=== PATIENT | female | born 1995 | race Caucasian/White ===

== ENCOUNTER 2022-01-15 23:45 | Emergency (ER) | payer OTHER ==
[~2022-01-15] VITALS: Ht 157.5 cm; Wt 70.9 kg
[2022-01-16 02:32] LABS: BACTERIA, URINE SMALL AMOUNT; HYALINE CAST, URINE NONE SEEN /lpf (0-1); RBC, URINE 30-40 /hpf (0-3); SQUAMOUS EPITHELIAL CELL URINE SMALL AMOUNT /hpf (SMALL AMT)
[2022-01-16 02:33] LABS: AMORPHOUS SEDIMENT, URINE SMALL AMOUNT (NEGATIVE)
[2022-01-16 06:44] LABS: HEMATOCRIT 36.1 % (36.0-47.0); HEMOGLOBIN 12.1 g/dl (12.0-15.5); MEAN CORPUSCULAR HEMOGLOBIN 30.9 pg (27.0-33.0); MEAN CORPUSCULAR HGB CONC 33.5 g/dl (32.0-36.5); MEAN CORPUSCULAR VOLUME 92.1 fl (80.0-96.0); PLATELET COUNT, AUTOMATED 214 10^3/uL (150-450); RED BLOOD COUNT 3.92 10^6/uL (4.00-5.40); WHITE BLOOD COUNT 7.4 10^3/uL (4.0-10.0)
[2022-01-16 07:09] LABS: HCG, SERUM QUALITATIVE NEGATIVE (NEGATIVE)
[2022-01-16 07:15] LABS: BLOOD UREA NITROGEN 12 MG/DL (7-18); CALCIUM LEVEL 9.5 MG/DL (8.5-10.1); CARBON DIOXIDE LEVEL 29 MEQ/L (21-32); CHLORIDE LEVEL 106 MEQ/L (98-107); CREATININE FOR GFR 0.74 MG/DL (0.55-1.30); GLOMERULAR FILTRATION RATE > 60.0 (>60); GLUCOSE, FASTING 92 MG/DL (70-100); POTASSIUM SERUM 3.9 MEQ/L (3.5-5.1); SODIUM LEVEL 139 MEQ/L (136-145)
[2022-01-16 09:16] VITALS: BP 130/82
== END 2022-01-16 09:28 | disposition home or self-care (01) ==
LOC: M ED 23:45
DX: N93.9 Abnormal uterine and vaginal bleeding, unspecified (principal); E28.2 Polycystic ovarian syndrome; K58.9 Irritable bowel syndrome, unspecified; Z87.442 Personal history of urinary calculi; Z88.0 Allergy status to penicillin; Z88.1 Allergy status to other antibiotic agents; Z88.6 Allergy status to analgesic agent; Z91.040 Latex allergy status; Z88.5 Allergy status to narcotic agent

== ENCOUNTER → 2022-09-28 | Outpatient (REF) | LOC: M LAB REF 17:21 | PROVIDERS: ATTEND Obstetrics & Gynecology Obstetrics | DX: Z00.00 Encounter for general adult medical examination without abnormal findings (principal) ==

== ENCOUNTER → 2022-10-21 | Outpatient (CLI) | payer OTHER ==
[2022-10-21 17:59] LABS: HEMATOCRIT 34.9 % (36.0-47.0); HEMOGLOBIN 11.7 g/dl (12.0-15.5); MEAN CORPUSCULAR HEMOGLOBIN 32.1 pg (27.0-33.0); MEAN CORPUSCULAR HGB CONC 33.5 g/dl (32.0-36.5); MEAN CORPUSCULAR VOLUME 95.9 fl (80.0-96.0); PLATELET COUNT, AUTOMATED 220 10^3/uL (150-450); RED BLOOD COUNT 3.64 10^6/uL (4.00-5.40); WHITE BLOOD COUNT 11.3 10^3/uL (4.0-10.0)
[2022-10-21 19:49] LABS: GC DNA AMPLIFICATION NEGATIVE (NEGATIVE)
== END ==
LOC: M PLALAB 15:38
PROVIDERS: ATTEND Obstetrics & Gynecology
DX: Z34.92 Encounter for supervision of normal pregnancy, unspecified, second trimester (principal)

== ENCOUNTER → 2022-11-07 | Outpatient (CLI) | payer OTHER ==
[2022-11-07 17:16] LABS: HEMOGLOBIN 11.9 g/dl (12.0-15.5); MEAN CORPUSCULAR HEMOGLOBIN 32.2 pg (27.0-33.0); MEAN CORPUSCULAR VOLUME 94.9 fl (80.0-96.0); PLATELET COUNT, AUTOMATED 253 10^3/uL (150-450); RED BLOOD COUNT 3.69 10^6/uL (4.00-5.40); WHITE BLOOD COUNT 13.3 10^3/uL (4.0-10.0)
[2022-11-07 17:53] LABS: URIC ACID 3.4 MG/DL (3.1-7.8)
[2022-11-07 17:56] LABS: LDH LACTATE DEHYDROGENASE 190 U/L (120-246)
[2022-11-07 17:57] LABS: ALT/SGPT 14 U/L (7.0-40); AST/SGOT 11 U/L (<34); BILIRUBIN,TOTAL 0.3 MG/DL (0.3-1.2); CREATININE FOR GFR 0.58 MG/DL (0.55-1.30); GLOMERULAR FILTRATION RATE > 60.0 (>60); TOTAL PROTEIN,RANDOM URINE 22.5 MG/DL (0.0-14.0)
[2022-11-07 18:01] LABS: CREATININE,RANDOM URINE 150.5 MG/DL
== END ==
LOC: M PLALAB 15:42
PROVIDERS: ATTEND Advanced Practice Midwife
DX: O13.9 Gestational [pregnancy-induced] hypertension without significant proteinuria, unspecified trimester (principal)

== ENCOUNTER 2022-11-19 00:41 | Outpatient (CLI) | payer OTHER ==
[~2022-11-19] VITALS: Ht 157.5 cm; Wt 77.2 kg
[2022-11-19 01:12] VITALS: BP 142/87
== END 2022-11-19 01:34 | disposition home or self-care (01) ==
LOC: M LDO 00:41
PROVIDERS: ATTEND Advanced Practice Midwife
DX: O26.893 Other specified pregnancy related conditions, third trimester (principal); N89.8 Other specified noninflammatory disorders of vagina; Z3A.30 30 weeks gestation of pregnancy
CPT/HCPCS: 59025; G0463

== ENCOUNTER 2022-12-02 17:23 | Outpatient (CLI) | payer OTHER ==
[2022-12-02] VITALS (11 sets, daily range): BP systolic 111–185; BP diastolic 54–84
[~2022-12-02] VITALS: Ht 157.5 cm; Wt 77.2 kg
[2022-12-02] MEDS ORDERED: PRENTAB9 PO (17:57)
[2022-12-02] MEDS ORDERED: ZOFRAN PO (17:57)
[2022-12-02 18:56] LABS: HEMATOCRIT 34.2 % (36.0-47.0); HEMOGLOBIN 11.3 g/dl (12.0-15.5); MEAN CORPUSCULAR HEMOGLOBIN 30.6 pg (27.0-33.0); MEAN CORPUSCULAR VOLUME 92.7 fl (80.0-96.0); PLATELET COUNT, AUTOMATED 250 10^3/uL (150-450); RED BLOOD COUNT 3.69 10^6/uL (4.00-5.40); WHITE BLOOD COUNT 12.4 10^3/uL (4.0-10.0)
[2022-12-02 19:09] LABS: URIC ACID 3.5 MG/DL (3.1-7.8)
[2022-12-02 19:12] LABS: LDH LACTATE DEHYDROGENASE 175 U/L (120-246)
[2022-12-02 19:13] LABS: ALT/SGPT 15 U/L (7.0-40); AST/SGOT 9 U/L (<34); BILIRUBIN,TOTAL 0.4 MG/DL (0.3-1.2); CREATININE FOR GFR 0.51 MG/DL (0.55-1.30); GLOMERULAR FILTRATION RATE > 60.0 (>60)
[2022-12-02 19:25] LABS: CREATININE,RANDOM URINE 18.6 MG/DL
[2022-12-02 19:29] LABS: TOTAL PROTEIN,RANDOM URINE < 6.0 MG/DL (0.0-14.0)
== END 2022-12-02 22:28 | disposition home or self-care (01) ==
LOC: M LDO 17:23
PROVIDERS: ATTEND Advanced Practice Midwife
DX: O26.893 Other specified pregnancy related conditions, third trimester (principal); R51.9 Headache, unspecified; Z3A.32 32 weeks gestation of pregnancy
CPT/HCPCS: 36415; 59025; 82247; 82565; 82570; 83615; 84156; 84450; 84460; 84550; 85027; G0463

== ENCOUNTER 2022-12-07 12:00 | Outpatient (CLI) | payer OTHER ==
[~2022-12-07] VITALS: Ht 157.5 cm; Wt 77.5 kg
[~2022-12-07 12:00] MED LIST: PRENTAB9 PO; ZOFRAN PO
[2022-12-07 12:33] VITALS: BP 133/60
[2022-12-07] MEDS ORDERED: BETAMETHASONE SOLUSPAN 6MG/ML 5ML VIAL IM SCH (14:00)
[2022-12-07 14:40] LABS: APPEARANCE, URINE CLEAR (CLEAR); BACTERIA, URINE AUTO NEGATIVE (NEGATIVE); BILIRUBIN, URINE AUTO NEGATIVE (NEGATIVE); BLOOD, URINE BLOOD NEGATIVE (NEGATIVE); COLOR, URINE STRAW (YELLOW); GLUCOSE, URINE (UA) AUTO NEGATIVE (NEGATIVE); KETONE, URINE AUTO NEGATIVE (NEGATIVE); LEUKOCYTE ESTERASE, URINE AUTO 1+ (NEGATIVE); NITRITE, URINE AUTO NEGATIVE (NEGATIVE); PROTEIN, URINE AUTO NEGATIVE (NEGATIVE); RBC, URINE AUTO 0 /HPF (0-3); SPECIFIC GRAVITY URINE AUTO 1.004 (1.002-1.035); SQUAMOUS EPITHELIAL CELL UR AU 3 /HPF (0-6); UROBILINOGEN, URINE AUTO 0.2 mg/dL (0.0-2.0); WBC, URINE AUTO 2 /HPF (0-3)
[2022-12-07 16:18] VITALS: BP 131/61
== END 2022-12-07 14:36 | disposition home or self-care (01) ==
LOC: M LDO 12:00
PROVIDERS: ATTEND Advanced Practice Midwife
DX: O47.03 False labor before 37 completed weeks of gestation, third trimester (principal); O99.513 Diseases of the respiratory system complicating pregnancy, third trimester; J45.909 Unspecified asthma, uncomplicated; O99.343 Other mental disorders complicating pregnancy, third trimester; F41.8 Other specified anxiety disorders; Z87.51 Personal history of pre-term labor; Z88.0 Allergy status to penicillin; Z88.1 Allergy status to other antibiotic agents; Z88.5 Allergy status to narcotic agent; Z3A.33 33 weeks gestation of pregnancy
CPT/HCPCS: 59025; G0463

== ENCOUNTER 2022-12-07 17:30 | Outpatient (CLI) | payer OTHER ==
[~2022-12-07] VITALS: Ht 157.5 cm; Wt 76.7 kg
[2022-12-07 17:51] VITALS: BP 132/74
[2022-12-07] MEDS ORDERED: LACTATED RINGER'S 1000 ML IV ONE (18:20)
[2022-12-07] MEDS ORDERED: LR 1,000 ML IV SCH (18:20)
[2022-12-07 18:49] LABS: HEMATOCRIT 34.9 % (36.0-47.0); HEMOGLOBIN 11.6 g/dl (12.0-15.5); MEAN CORPUSCULAR HEMOGLOBIN 30.5 pg (27.0-33.0); MEAN CORPUSCULAR HGB CONC 33.2 g/dl (32.0-36.5); MEAN CORPUSCULAR VOLUME 91.8 fl (80.0-96.0); PLATELET COUNT, AUTOMATED 268 10^3/uL (150-450); WHITE BLOOD COUNT 18.8 10^3/uL (4.0-10.0)
[2022-12-07 20:01] LABS: HEPATITIS C VIRUS ABY INDEX 0.09 INDEX (<0.8)
== END 2022-12-08 06:45 | disposition home or self-care (01) ==
LOC: M LDO 17:30
PROVIDERS: ATTEND Advanced Practice Midwife
DX: O47.03 False labor before 37 completed weeks of gestation, third trimester (principal); O99.513 Diseases of the respiratory system complicating pregnancy, third trimester; J45.909 Unspecified asthma, uncomplicated; O99.343 Other mental disorders complicating pregnancy, third trimester; F41.8 Other specified anxiety disorders; Z3A.33 33 weeks gestation of pregnancy; Z87.51 Personal history of pre-term labor; Z88.0 Allergy status to penicillin; Z88.1 Allergy status to other antibiotic agents; Z88.5 Allergy status to narcotic agent
CPT/HCPCS: 59025; 81001; 85027; 86780; 86803; 86850; 86900; 86901; G0463; J0702

== ENCOUNTER 2022-12-22 20:39 | Outpatient (CLI) | payer OTHER ==
[~2022-12-22] VITALS: Ht 157.5 cm; Wt 77.9 kg
[2022-12-22] MEDS ORDERED: HOME MED LIST COMPLETE! XX SCH (20:50)
[2022-12-22 20:51] VITALS: BP 142/92
[2022-12-22 21:07] VITALS: BP 134/76
== END 2022-12-22 22:15 | disposition home or self-care (01) ==
LOC: M LDO 20:39
PROVIDERS: ATTEND Obstetrics & Gynecology
DX: O47.03 False labor before 37 completed weeks of gestation, third trimester (principal); Z87.51 Personal history of pre-term labor; Z88.0 Allergy status to penicillin; Z88.1 Allergy status to other antibiotic agents; Z91.040 Latex allergy status; Z3A.35 35 weeks gestation of pregnancy
CPT/HCPCS: 59025; G0463

== ENCOUNTER 2022-12-25 21:06 | Outpatient (CLI) | payer OTHER ==
[~2022-12-25] VITALS: Ht 157.5 cm; Wt 78.6 kg
[2022-12-25 21:32] VITALS: BP 138/79
== END 2022-12-25 22:15 | disposition home or self-care (01) ==
LOC: M LDO 21:06
PROVIDERS: ATTEND Obstetrics & Gynecology
DX: O47.03 False labor before 37 completed weeks of gestation, third trimester (principal); Z88.0 Allergy status to penicillin; Z88.1 Allergy status to other antibiotic agents; Z88.6 Allergy status to analgesic agent; Z91.040 Latex allergy status; Z87.51 Personal history of pre-term labor; Z3A.35 35 weeks gestation of pregnancy
CPT/HCPCS: 59025; G0463

== ENCOUNTER → 2022-12-27 | Outpatient (REF) | payer OTHER | LOC: M PLALAB 13:39 | PROVIDERS: ATTEND Obstetrics & Gynecology | DX: Z34.80 Encounter for supervision of other normal pregnancy, unspecified trimester (principal) ==

== ENCOUNTER → 2022-12-27 | Outpatient (CLI) | payer OTHER ==
[2022-12-27 15:56] LABS: HEMATOCRIT 32.2 % (36.0-47.0); HEMOGLOBIN 10.6 g/dl (12.0-15.5); MEAN CORPUSCULAR HEMOGLOBIN 29.5 pg (27.0-33.0); MEAN CORPUSCULAR HGB CONC 32.9 g/dl (32.0-36.5); MEAN CORPUSCULAR VOLUME 89.7 fl (80.0-96.0); PLATELET COUNT, AUTOMATED 236 10^3/uL (150-450); RED BLOOD COUNT 3.59 10^6/uL (4.00-5.40)
== END ==
LOC: M PLALAB 14:11
PROVIDERS: ATTEND Obstetrics & Gynecology
DX: Z34.80 Encounter for supervision of other normal pregnancy, unspecified trimester (principal)

== ENCOUNTER 2023-01-05 17:20 | Outpatient (CLI) | payer OTHER ==
[~2023-01-05] VITALS: Ht 157.5 cm; Wt 79.7 kg
[~2023-01-05 17:20] MED LIST changes: +FAMO1TAB11 PO; +ONDA4TAB6 PO; +PYRI50TA41 PO
[2023-01-05 17:40] VITALS: BP 142/83
[2023-01-05 17:41] VITALS: BP 142/81
[2023-01-05 18:08] VITALS: BP 138/87
[2023-01-05 18:50] LABS: TOTAL PROTEIN,RANDOM URINE < 6.0 MG/DL (0.0-14.0)
[2023-01-05 18:51] LABS: CREATININE,RANDOM URINE 44.8 MG/DL
== END 2023-01-05 18:58 | disposition home or self-care (01) ==
LOC: M LDO 17:20
PROVIDERS: ATTEND Obstetrics & Gynecology
DX: O26.893 Other specified pregnancy related conditions, third trimester (principal); N89.8 Other specified noninflammatory disorders of vagina; Z3A.37 37 weeks gestation of pregnancy; Z88.0 Allergy status to penicillin; Z88.1 Allergy status to other antibiotic agents; Z88.5 Allergy status to narcotic agent; Z91.040 Latex allergy status; Z87.51 Personal history of pre-term labor
CPT/HCPCS: 59025; 82570; 84156; G0463

== ENCOUNTER 2023-01-16 05:15 | Inpatient (IN) | payer OTHER ==
[~2023-01-16] VITALS: Ht 157.5 cm; Wt 80.5 kg
[2023-01-16] VITALS (9 sets, daily range): BP systolic 113–143; BP diastolic 52–90; TEMP 97.1; O2SAT 94–99
[2023-01-16] MEDS ORDERED: ACET-897 PO (05:38)
[2023-01-16] MEDS ORDERED: HOME MED LIST COMPLETE! XX SCH (05:40)
[2023-01-16] MEDS ORDERED: LACTATED RINGER'S 1000 ML IV STA (06:57)
[2023-01-16] MEDS ORDERED: ceFAZolin SOD 2 GM in IV 1 EA IV ONE (07:00)
[2023-01-16] MEDS ORDERED: LIDOCAINE 1% MDV 20ML VIAL INFIL PRN (07:00)
[2023-01-16] MEDS ORDERED: METHYLERGONOVINE MALEATE 0.2MG/ML 1ML VIAL IM PRN (07:00)
[2023-01-16] MEDS ORDERED: LR 1,000 ML IV SCH (07:00)
[2023-01-16] MEDS ORDERED: AZITHROMYCIN INJ 500 MG, VIAL MATE ADAPTER 1 EACH in NS 250 ML IV ONE (07:00)
[2023-01-16] MEDS ORDERED: TRANEXAMIC ACID INJection 1,000 MG in NS 100 ML IV PRN (07:00)
[2023-01-16] MEDS ORDERED: OXYTOCIN DRIP 30 UNITS in IV 1 EA IV PRN (07:00)
[2023-01-16 07:02] LABS: HEMATOCRIT 32.4 % (36.0-47.0); HEMOGLOBIN 10.6 g/dl (12.0-15.5); MEAN CORPUSCULAR HEMOGLOBIN 28.6 pg (27.0-33.0); MEAN CORPUSCULAR HGB CONC 32.7 g/dl (32.0-36.5); MEAN CORPUSCULAR VOLUME 87.6 fl (80.0-96.0); PLATELET COUNT, AUTOMATED 216 10^3/uL (150-450); WHITE BLOOD COUNT 13.9 10^3/uL (4.0-10.0)
[2023-01-16] MEDS ORDERED: BICITRA 30ML SOLN UDC PO ONE (07:10)
[2023-01-16] MEDS ORDERED: OXYTOCIN INJ 10UNITS/ML 1ML VIAL As Ordered ONE (07:26)
[2023-01-16] MEDS ORDERED: ONDANSETRON 4MG 2ML VIAL As Ordered ONE (07:26)
[2023-01-16] MEDS ORDERED: KETOROLAC 60MG 2ML VIAL As Ordered ONE (07:26)
[2023-01-16] MEDS ORDERED: fentaNYL 100 MCG/2 ML INJECTION As Ordered ONE (07:26)
[2023-01-16] MEDS ORDERED: MORPHINE PRES-FREE INJ 10 MG/10 ML VIAL As Ordered ONE (07:26)
[2023-01-16] MEDS ORDERED: ePHEDrine SULFATE 25 MG/5 ML(5MG/ML) SYRINGE As Ordered ONE (07:59)
[2023-01-16] MEDS ORDERED: METOCLOPRAMIDE INJ 10MG/2ML VIAL As Ordered ONE (07:59)
[2023-01-16] MEDS ORDERED: MOM 30ML SUSPENSION UDC PO PRN (08:50)
[2023-01-16] MEDS ORDERED: OXYTOCIN DRIP 30 UNITS in IV 1 EA IV SCH (08:50)
[2023-01-16] MEDS ORDERED: PERCOCET 5MG/325MG TAB PO PRN ×2 (08:50)
[2023-01-16] MEDS ORDERED: RHOGAM 300MCG (1500IU) INJ IM SCH (08:50)
[2023-01-16] MEDS ORDERED: SIMETHICONE 80MG CHEW TAB PO PRN (08:50)
[2023-01-16] MEDS ORDERED: OXYTOCIN 30UNITS IN 0.9% NaCl 500ML IV BAG As Ordered ONE (08:55)
[2023-01-16] MEDS: LR 1,000 ML IV SCH ×2 (08:58→16:50)
[2023-01-16] MEDS: DOCUSATE SODIUM 100MG CAPSULE PO SCH ×2 (09:00→20:43)
[2023-01-16] MEDS: PRENATAL VITAMINS CHEWABLE TABLET PO SCH (09:00)
[2023-01-16] MEDS ORDERED: COLA100C5 PO (09:06)
[2023-01-16] MEDS ORDERED: IBUP80TA PO (09:06)
[2023-01-16] MEDS ORDERED: PERCOCET PO (09:06)
[2023-01-16] MEDS ORDERED: oxyCODONE 5MG TAB PO PRN (11:45)
[2023-01-16] MEDS ORDERED: ACETAMINOPHEN TAB 650MG DOSE (2X325MG) PO PRN (11:45)
[2023-01-16] MEDS ORDERED: ONDANSETRON 4MG 2ML VIAL IV PRN (11:50)
[2023-01-16] MEDS: ACETAMINOPHEN 500 MG TAB PO PRN (12:30)
[2023-01-16] MEDS: KETOROLAC 30 MG/ML 1ML VIAL IV SCH ×2 (14:39→20:43)
[2023-01-16] MEDS: oxyCODONE 5MG TAB PO PRN (19:42)
[2023-01-17] MEDS: ACETAMINOPHEN 500 MG TAB PO PRN ×3 (00:42→20:00)
[2023-01-17 02:00] VITALS: BP 121/60
[2023-01-17] MEDS: KETOROLAC 30 MG/ML 1ML VIAL IV SCH (02:32)
[2023-01-17 06:00] VITALS: BP 106/52
[2023-01-17 06:48] LABS: HEMATOCRIT 23.8 % (36.0-47.0); MEAN CORPUSCULAR HEMOGLOBIN 28.7 pg (27.0-33.0); MEAN CORPUSCULAR HGB CONC 31.9 g/dl (32.0-36.5); MEAN CORPUSCULAR VOLUME 89.8 fl (80.0-96.0); PLATELET COUNT, AUTOMATED 176 10^3/uL (150-450); RED BLOOD COUNT 2.65 10^6/uL (4.00-5.40); WHITE BLOOD COUNT 12.2 10^3/uL (4.0-10.0)
[2023-01-17 06:55] LABS: HEMOGLOBIN 7.6 g/dl (12.0-15.5)
[2023-01-17] MEDS: DOCUSATE SODIUM 100MG CAPSULE PO SCH ×2 (08:03→19:50)
[2023-01-17] MEDS: PRENATAL VITAMINS CHEWABLE TABLET PO SCH (08:04)
[2023-01-17] MEDS: oxyCODONE 5MG TAB PO PRN ×2 (08:10→15:45)
[2023-01-17 09:59] VITALS: BP 116/53; O2SAT 96
[2023-01-17] MEDS: IBUPROFEN 800 MG TAB PO SCH ×2 (11:42→18:17)
[2023-01-17 13:52] VITALS: BP 110/51; O2SAT 97
[2023-01-17 18:00] VITALS: BP 117/68; O2SAT 97
[2023-01-17 22:00] VITALS: BP 117/61; O2SAT 100
[2023-01-18 02:00] VITALS: BP 106/55; O2SAT 97
[2023-01-18] MEDS: IBUPROFEN 800 MG TAB PO SCH ×2 (02:06→11:01)
[2023-01-18] MEDS: oxyCODONE 5MG TAB PO PRN (03:06)
[2023-01-18 06:00] VITALS: BP 122/62; O2SAT 97
[2023-01-18] MEDS: DOCUSATE SODIUM 100MG CAPSULE PO SCH (08:00)
[2023-01-18] MEDS: PRENATAL VITAMINS CHEWABLE TABLET PO SCH (08:00)
[2023-01-18] MEDS: ACETAMINOPHEN 500 MG TAB PO PRN (08:02)
[2023-01-18] MEDS ORDERED: MEASLES,MUMPS,RUBELLA VACCINE INJ (MMR-II) SC.IMMUN ONE (09:00)
[2023-01-18 10:00] VITALS: BP 128/58; O2SAT 97
== END 2023-01-18 12:38 | disposition home or self-care (01) | DRG 773 ==
LOC: M LDO 05:15 → M LDI 06:10 → M OBS 10:12
PROVIDERS: ADMIT Obstetrics & Gynecology; ATTEND Obstetrics & Gynecology
PROC: 10D00Z1 Extraction of Products of Conception, Low, Open Approach (ICD-10-PCS; principal; 2023-01-16 07:09)
DX: O99.52 Diseases of the respiratory system complicating childbirth (principal); J45.909 Unspecified asthma, uncomplicated; O99.824 Streptococcus B carrier state complicating childbirth; Z3A.38 38 weeks gestation of pregnancy; Z37.0 Single live birth; O09.293 Supervision of pregnancy with other poor reproductive or obstetric history, third trimester

== ENCOUNTER → 2023-08-29 | Outpatient (REF) | payer OTHER ==
[~2023-08-29] MED LIST changes: +ACET-897 PO; +COLA100C5 PO; +IBUP80TA PO; +PERCOCET PO
== END ==
LOC: M LAB REF 11:34
PROVIDERS: ATTEND Physician Assistant
DX: R30.0 Dysuria (principal)